=== PATIENT | male | born 1980 | race Caucasian/White ===

== ENCOUNTER 2020-06-14 10:39 | Day surgery (SDC) | payer BC, SELFPAY ==
[2020-06-14 10:45] VITALS: BP 144/114; PULSE 94; RESP 20; TEMP 36.2; O2SAT 99
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
[2020-06-14 12:57] LABS: Abs Immature Grans 0.05 10^3/uL (0.0-0.06); Absolute Eosinophil Count 0.22 10^3/uL (0.0-0.7); Absolute Lymphocyte Count 1.13 10^3/uL (1.2-3.4); Absolute Monocyte Count 0.87 10^3/uL (0.1-0.8); Basophils % 0.2; Eosinophils % 1.7; HCT 44.2 % (40.0-50.0); Immature Grans % 0.4; Lymphocytes % 8.6; MCH 29.6 pg (27.0-33.0); MCHC 33.9 % (32.0-36.0); MCV 87.2 fL (80-95); MPV 10.9 fL (8.0-11.0); Monocytes % 6.6; Neutrophils % 82.5 %; Platelet Count 195 10^3/uL (130-400); RBC 5.07 10^6/uL (4.36-5.78); RDW 12.4 % (11.8-14.1); WBC 13.17 10^3/uL (4.4-10.8)
[2020-06-14 12:59] LABS: Absolute Basophil Count 0.03 10^3/uL (0.0-0.2); Absolute Neutrophil Count 10.87 10^3/uL (1.2-6.7)
[2020-06-14 13:13] LABS: ALT 204 U/L (16-63); AST 164 U/L (15-37); Albumin 3.4 g/dL (3.4-5.0); Alkaline Phosphatase 122 U/L (46-116); Anion Gap 8.7 mmol/L (3-11); BUN 21 mg/dL (7-18); Bilirubin, Total 1.4 mg/dL (0.2-1.0); CO2 27.3 mmol/L (21.0-32.0); CREATININE 1.15 mg/dL (0.70-1.30); Calcium 9.8 mg/dL (8.5-10.1); Chloride 102 mmol/L (98-107); Glucose 90 mg/dL (74-106); Potassium 4.1 mmol/L (3.5-5.1); Sodium 138 mmol/L (136-145); Total Protein 7.8 g/dL (6.4-8.2)
[2020-06-14] MEDS: PIPERACILLIN/TAZO 3.375 GM in Normal Saline 50 ML IVPB (13:44)
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
[2020-06-14 13:50] VITALS: BP 141/107; PULSE 87; RESP 18; TEMP 36.7; O2SAT 99
[2020-06-14 14:04] VITALS: BP 143/92; PULSE 85; RESP 16; TEMP 36.4; O2SAT 98
[2020-06-14 14:04] LABS: C-Reactive Protein 16.67 mg/dL (0.0-0.3)
[2020-06-14 14:34] LABS: ESR 86 mm/hr (0-15)
[2020-06-14] MEDS: Lactated Ringers 1,000 ML 80 ML IV (14:37)
--- NOTE | 2020-06-14 14:55 | W.PM.DSUDISC ---
Discharge Plan Disposition Patient Disposition: HOME Condition: Improving Discharge Details Chief Complaint: Orthopedic Clinical Impression: Open fracture metacarpal shaft, Infected hand Reason For Visit: Infected Hand, Open Right Hand Fractures Attending Provider: Atilio Alvarez Primary Care Provider: Ewa Montoya ED Provider: Shabbir Medrano Home Meds and New Rx's Prescriptions: New hydrocodone-acetaminophen 5-325 mg tablet 1 tab PO Q6H PRN PRN (Reason: pain) Qty: 10 RF: 0 acetaminophen 500 mg tablet 500 mg PO Q8H PRN (Reason: pain) Qty: 90 RF: 3 ibuprofen 600 mg tablet 600 mg PO TID PRNQty: 30 RF: 3 metronidazole 500 mg tablet 500 mg PO BID Qty: 14 RF: 0 Continued cephalexin [Keflex] 500 mg Capsule 500 mg PO QID RF: 0 Discontinued naproxen sodium 220 MG tablet 220 mg PO BID RF: 0 Discharge Instructions Additional Instructions: Activity: You should stay in the splint until your followup. You should keep the hand elevated (higher than the elbow) as much as possible. Dressings: You should keep the initial surgical dressing and splint in place until follow-up. Medications: - You should take Tylenol and Ibuprofen around the clock as prescribed or per instructional design technologist's recommendations. - You have Hydrocodone prescribed for breakthrough pain control. Take only as needed and limit use as much as possible. This may cause constipation. Follow-up: Saturday for dressing change and wound check Referrals: Atilio Alvarez MD [ [facility] STAFF PHYSICIAN] - Equipment/Supplies: Splint Activity:: Elevate Remove Dressings/Wound Care:: Do Not Remove Shower/Bathe:: Cover Discharge Orders Discharge Orders: Discharge Order (Routine); Ordered 06/14/20 Ordered By: Atilio Alvarez DS: Diagnosis Discharge Diagnosis (1) Open fracture metacarpal shaft: Status: Acute (2) Infected hand: Status: Acute
[2020-06-14] MEDS: Bupivacaine 0.25% Pres-Free 30 ML VIAL (16:00)
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
[2020-06-14 16:48] VITALS: BP 154/87; PULSE 85; RESP 16; TEMP 36.5; O2SAT 98
== END 2020-06-14 17:30 | disposition home or self-care (01) ==
LOC: ER 13:49 → SUR 14:04
PROVIDERS: Emergency Provider Physician Assistant; PCP Family Medicine; Visit Provider Student in an Organized Health Care Education/Training Program
PROC: (CPT 11043; principal; 2020-06-14 14:30)
DX: T79.8XXA Other early complications of trauma, initial encounter (principal); L02.511 Cutaneous abscess of right hand; L03.113 Cellulitis of right upper limb; S61.421A Laceration with foreign body of right hand, initial encounter; S62.350 Nondisplaced fracture of shaft of second metacarpal bone, right hand; S62.352B Nondisplaced fracture of shaft of third metacarpal bone, right hand, initial encounter for open fracture; V86.55XA Driver of 3- or 4- wheeled all-terrain vehicle (ATV) injured in nontraffic accident, initial encounter; G89.18 Other acute postprocedural pain
CPT/HCPCS: 11043; 36415; 76942; 80053; 85652; 96365; 99253; 73130; 85025; 86140; 87070; 87205; 99284; J1885; J2250; J2543

== ENCOUNTER 2020-06-17 11:20 | Outpatient (CLI) | payer BC, SELFPAY ==
--- NOTE | 2020-06-17 10:45 | DI.RAD_ITS ---
EXAM: XR HAND RT COMPLETE CLINICAL HISTORY: eval R 2nd and 3rd MC fracture TECHNIQUE: 2D digital imaging was performed. COMPARISON: CR XR HAND RT COMPLETE from 06/14/2020 FINDINGS: There has been no change in the appearance of fractures seen extending transversely through the mid t o distal shafts of the 2nd and 3rd metacarpals. There is no displacement or angulation. No addition al fractures are seen. IMPRESSION: Stable appearance of 2nd and 3rd metacarpal fractures.
== END 2020-06-17 11:40 ==
PROVIDERS: PCP Family Medicine; Referring Provider Family Medicine; Visit Provider Student in an Organized Health Care Education/Training Program
DX: S62.320A Displaced fracture of shaft of second metacarpal bone, right hand, initial encounter for closed fracture (principal); S62.322A Displaced fracture of shaft of third metacarpal bone, right hand, initial encounter for closed fracture
CPT/HCPCS: 73130

== ENCOUNTER 2020-07-07 12:20 | Outpatient (CLI) | payer BC, SELFPAY ==
--- NOTE | 2020-07-07 11:00 | DI.RAD_ITS ---
EXAM: XR HAND RT COMPLETE CLINICAL HISTORY: f/u right 2nd and 3rd MC fractures TECHNIQUE: 2D digital imaging was performed. COMPARISON: CR XR HAND RT COMPLETE from 06/14/2020 CR XR HAND RT COMPLETE from 06/17/2020 FINDINGS: There is callus formation seen around the previously noted fractures of the 2nd and 3rd metacarpals. The alignment is not significantly changed. There is soft tissue swelling has decreased. On the la teral view, there is question of a fracture at the at the bases of the 2nd or 3rd metacarpal, not vi sible on the AP or oblique view. IMPRESSION: Healing fractures of the mid to distal shafts of the 2nd and 3rd metacarpals. Question additional f racture seen at the base of one of the metacarpals seen only on the lateral view.
== END 2020-07-07 12:40 ==
PROVIDERS: PCP Family Medicine; Referring Provider Family Medicine; Visit Provider Student in an Organized Health Care Education/Training Program
DX: S62.320A Displaced fracture of shaft of second metacarpal bone, right hand, initial encounter for closed fracture (principal); S62.322A Displaced fracture of shaft of third metacarpal bone, right hand, initial encounter for closed fracture
CPT/HCPCS: 73130